=== PATIENT | female | born 1960 | race American Indian/Alaskan Native ===

== ENCOUNTER 2017-01-11 10:36 | Day surgery (SDC) | payer BC, OTHER ==
[2017-01-11] MEDS ORDERED: WATER FOR IRRIG STERILE IR ONE ×3 (10:46→13:56)
[2017-01-11] MEDS ORDERED: WATER FOR IRRIG STERILE ONE (10:46)
[2017-01-11] MEDS ORDERED: NACL 0.9% 1000 ML 1,000 ML IV SCH (11:00)
[2017-01-11] MEDS ORDERED: INFANTS' GAS RELIEF PO ONE (11:07)
--- NOTE | 2017-01-11 12:14 | Anesthesia Consultation ---
Anesthesia Consult and Med Hx - Airway Anesthetic Teeth Evaluation: Good, Crowns ROM Head & Neck: Adequate Mental/Hyoid Distance: Adequate Mallampati Class: Class II Intubation Access Assessment: Probably Good - Pulmonary Exam CTA: Yes - Cardiac Exam Cardiac Exam: RRR - Pre-Operative Health Status ASA Pre-Surgery Classification: ASA2 Proposed Anesthetic Plan: MAC (s/p abdominoplasty and breast implants) - Cardiovascular System Hx Hypertension: Yes (borderline; takes amlodipine)
--- NOTE | 2017-01-11 12:15 | Anesthesia Day of Surgery ---
Anesthesia Day of Surgery - Day of Surgery Patient Examined: Yes Patient H&P Reviewed: Yes Patient is NPO: Yes
[2017-01-11] MEDS ORDERED: DIPRIVAN 10 MG/ML IV ONE ×2 (12:21)
--- NOTE | 2017-01-11 13:36 | Procedure Note ---
Date of procedure: 01/11/17 Pre-op diagnosis: Colon Polyp Screening Post-op diagnosis: other (Normal Colon Mucosa (no colon polyp or diverticular disease noted)/Minor,Internal Hemorrhoid) Anesthesia: MAC Surgeon: ANANT DOMINGUEZ Estimated blood loss: none Pathology: none Condition: stable Disposition: same day (Normal colonoscopy except for minor Internal Hemorrhoid. Have patient follow up in 1 to 2 weeks.)
--- NOTE | 2017-01-11 14:09 | Post Anesthesia Evaluation ---
- Post Anesthesia Evaluation Patient Participated: Yes Airway Patent: Yes Stable Respiratory Function: Yes Temp > 96.8F: Yes Pain Manageable: Yes Adequeate Hydration: Yes Anesthesia Complications: No
--- NOTE | 2017-01-11 14:20 | History and Physical Report ---
HISTORY OF PRESENT ILLNESS: This is a 56-year-old -Taj[place] female in otherwise good health with an underlying history of hypertension for which she is on amlodipine. Because of her age, she is having a colonoscopy done as part of colon polyp screening. PAST SURGICAL HISTORY: Includes two C-sections and a cosmetic surgery on her abdomen. SOCIAL HISTORY: Denies any history of smoking. Rare history of alcohol use. Has had her flu shots. FAMILY HISTORY: No cardiac issues. ALLERGIES: She has no known allergies. PHYSICAL EXAMINATION: VITAL SIGNS: She is afebrile. Blood pressure 111/41, pulse 61, height is 5 feet 7 inches, weight is 156 pounds. HEENT: Shows no JVD. LUNGS: Clear to auscultation. CARDIOVASCULAR: Normal. ABDOMEN: Soft. Bowel sounds present. NEUROLOGIC: The patient is alert and oriented. IMPRESSION: Colon polyp screening and hypertension. PLAN: Plan is to do a colonoscopy at [facility] on 01/10/2017. JOB# [id number] PAULO/GABBY
[2017-01-11 14:28] VITALS: BP 113/63
--- NOTE | 2017-01-11 17:10 | Operative Report ---
INDICATIONS: This is a 56-year-old -Martiniquais female with an underlying history of mild hypertension for which she is on amlodipine and no other medical problems; because of her age, she had a colonoscopy done as part of colon polyp screening. Procedure was done after getting informed consent with MAC anesthesia. Initial rectal exam was unremarkable. Instrument was passed in the rectum on to the cecum, which was identified with ileocecal valve and the appendiceal orifice. Visualization was fair to good. Cecum, ascending colon, transverse colon, descending colon, and sigmoid showed normal mucosa. There was no evidence of any polyps, colitis or diverticular disease. The rectum showed some minor internal hemorrhoids on the retroverted view. No biopsies were done. There was no bleeding associated with the procedure. No complications associated with the procedure. ASSESSMENT: Colon polyp screening, no colon polyps noted. Minor internal hemorrhoids. PLAN: Plan is to have the patient resume previous medication and to follow up in the office in about 1-2 weeks' time. [facility]# [id number] PAULO/GABBY
== END 2017-01-11 10:37 | disposition home or self-care (01) ==
LOC: GIO 10:36
DX: Z12.11 Encounter for screening for malignant neoplasm of colon (principal); K64.8 Other hemorrhoids; Z98.890 Other specified postprocedural states
CPT/HCPCS: 45378; J2704; J7030